=== PATIENT | male | born 1955 | race Caucasian/White ===

== ENCOUNTER → 2018-09-12 | Outpatient (REF) ==
[~2018-09-12] MED LIST: FLEXERIL10 MG PO; HYDROCODONE/APAP; MOTRIN800 MG PO; NO HOME MEDICATIONS; PERCOCET 325 MG1 TA2 PO; ULTRAM 50MG TAB50 MG PO; ZOFRAN8 MG PO
== END ==
LOC: ZLAB.WCH 16:15
DX: Z01.89 Encounter for other specified special examinations (principal)
CPT/HCPCS: G0103

== ENCOUNTER 2023-02-16 10:30 | Outpatient (RCR) | payer BC, MEDICARE | END 2023-02-25 | disposition home or self-care (01) | LOC: WSPT | DX: R20.2 Paresthesia of skin (principal) ==

== ENCOUNTER 2023-03-23 10:30 | Outpatient (RCR) | payer BC, MEDICARE | END 2023-03-27 | disposition home or self-care (01) | LOC: WSPT | DX: R20.2 Paresthesia of skin (principal) ==

== ENCOUNTER 2023-04-16 07:29 | Emergency (ER) | payer BC, MEDICARE ==
[~2023-04-16] VITALS: Ht 180.3 cm; Wt 86.4 kg
[2023-04-16 07:41] VITALS: TEMP 97.8
[2023-04-16] MEDS ORDERED: NORCO 325 MG-51 TAB PO (08:53)
[2023-04-16] MEDS ORDERED: MOTRIN 800800 MG/TAB PO (08:53)
[2023-04-16] MEDS ORDERED: FLEXERIL 1010 MG/TAB PO (08:53)
[2023-04-16 09:01] VITALS: BP 128/89; PULSE 60
== END 2023-04-16 09:01 | disposition home or self-care (01) ==
LOC: COL.ER 07:29
DX: M54.16 Radiculopathy, lumbar region (principal)
CPT/HCPCS: J2270; J2360

== ENCOUNTER 2023-06-23 09:45 | Outpatient (RCR) | payer BC, MEDICARE ==
[~2023-06-23 09:45] MED LIST changes: +FLEXERIL 1010 MG/TAB PO; +MOTRIN 800800 MG/TAB PO; +NORCO 325 MG-51 TAB PO
== END 2023-06-27 | disposition home or self-care (01) ==
LOC: WSPT
DX: M54.16 Radiculopathy, lumbar region (principal)

== ENCOUNTER 2023-07-08 09:00 | Outpatient (RCR) | payer BC, MEDICARE | END 2023-07-28 | disposition home or self-care (01) | LOC: WSPT | DX: M54.16 Radiculopathy, lumbar region (principal) ==

== ENCOUNTER → 2023-07-15 | Outpatient (CLI) | payer BC, MEDICARE ==
[~2023-07-15] MED LIST changes: +Iohexol 300 - 10 ML VIAL ONE; +Lidocaine PF 2% (20 MG/ML) 2 ML VIAL ONE
== END ==
LOC: MHCPAIN 09:03
DX: M54.16 Radiculopathy, lumbar region (principal)
CPT/HCPCS: J1100; Q9967